=== PATIENT | male | born 1975 | race Caucasian/White ===

== ENCOUNTER 2017-03-29 17:44 | Emergency (ER) | payer OTHER ==
[~2017-03-29] VITALS: Ht 185.4 cm; Wt 141.6 kg
[~2017-03-29 17:44] MED LIST: ALLOPURINOL100 MG PO; BENICAR20 MG PO; INDOMETHACIN25 MG PO; LOSARTAN-HCTZ1 EAC2 PO; NABUMETONE750 MG PO; PERCOCET 5/31 TABLET PO; PRILOSEC40 MG PO; TRAMADOL HCL50 MG PO; ZANTAC150 MG PO; ZOFRAN4 MG PO
[2017-03-29 19:08] LABS: HEMATOCRIT 46.1 % (38.0-50.0); MCH 28.5 PG (29.0-34.0); MCV 86.5 FL (86-99); MEAN PLAT.VOLUME 9.4 uM^3 (9.0-12.4); PLATELET COUNT 233 K/uL (156-360); RBC DIS.WIDTH-CV 14.4 % (11.8-14.6); RBC DIS.WIDTH-SD 45.3 % (39-53); RED BLOOD COUNT 5.33 M/uL (4.00-5.50); WHITE BLOOD COUNT 12.2 K/uL (4.1-10.2)
[2017-03-29 19:17] LABS: CHLORIDE 104 mEq/L (99-109); POTASSIUM 3.4 mEq/L (3.7-5.4); SODIUM 139 mEq/L (136-147)
[2017-03-29 19:20] LABS: GLUCOSE 136 mg/dL (70-99)
[2017-03-29 19:21] LABS: ANION GAP 12 MEQ/L (2-14); TOTAL BILIRUBIN 0.3 mg/dL (0.0-1.0)
[2017-03-29 19:23] LABS: ALKALINE PHOSPHATASE 32 IU/L (3-129); GFR ESTIMATE (CALCULATED) 59 mL/min/
[2017-03-29 19:24] LABS: UREA NITROGEN (BUN) 14 mg/dL (9-23)
[2017-03-29 19:48] VITALS: BP 127/65
== END 2017-03-29 19:48 | disposition home or self-care (01) ==
LOC: EME 17:44
PROVIDERS: Physician Assistant
DX: K60.2 Anal fissure, unspecified (principal); I10 Essential (primary) hypertension; F17.200 Nicotine dependence, unspecified, uncomplicated
CPT/HCPCS: 80053; 85027; 86850; 86900; 86901; 99281; 99283

== ENCOUNTER 2017-04-03 19:30 | Emergency (ER) | payer OTHER ==
[~2017-04-03] VITALS: Ht 185.4 cm; Wt 140.9 kg
[2017-04-03 21:15] LABS: HEMATOCRIT 46.2 % (38.0-50.0); MCH 28.6 PG (29.0-34.0); MCHC 33.3 G/DL (30.0-36.0); MCV 85.7 FL (86-99); MEAN PLAT.VOLUME 9.1 uM^3 (9.0-12.4); PLATELET COUNT 257 K/uL (156-360); RBC DIS.WIDTH-CV 14.5 % (11.8-14.6); RBC DIS.WIDTH-SD 45.1 % (39-53); RED BLOOD COUNT 5.39 M/uL (4.00-5.50); WHITE BLOOD COUNT 12.8 K/uL (4.1-10.2)
[2017-04-03 21:25] LABS: CHLORIDE 104 mEq/L (99-109); POTASSIUM 3.5 mEq/L (3.7-5.4); SODIUM 139 mEq/L (136-147)
[2017-04-03 21:27] LABS: GLUCOSE 131 mg/dL (70-99)
[2017-04-03 21:29] LABS: ANION GAP 11 MEQ/L (2-14)
[2017-04-03 21:31] LABS: ALKALINE PHOSPHATASE 39 IU/L (3-129); GFR ESTIMATE (CALCULATED) > 59 mL/min/
[2017-04-03 21:32] LABS: UREA NITROGEN (BUN) 12 mg/dL (9-23)
[2017-04-03 21:34] LABS: TOTAL BILIRUBIN 0.6 mg/dL (0.0-1.0)
[2017-04-03] MEDS ORDERED: NORCO 5/3251 TABLET PO (21:53)
[2017-04-03] MEDS ORDERED: LEVOFLOXACIN500 MG PO (21:53)
[2017-04-03 21:56] LABS: ADD MIUA? YES; BILIRUBIN NEGATIVE; BLOOD MODERATE; COLOR YELLOW ((YELLOW)); GLUCOSE (STRIP) >=500; KETONES NEGATIVE; LEUKOCYTES SMALL; NITRITE POSITIVE; PROTEIN (STRIP) NEGATIVE; SPECIFIC GRAVITY 1.021 (1.000-1.030); UROBILINOGEN 0.2 MG/DL (0.2-1.0)
[2017-04-03 22:00] LABS: BACTERIA 2+ /HPF; EPITHELIAL CELLS RARE /HPF; MUCUS TRACE /LPF; RED BLOOD CELLS 0-5 /HPF (0-5); UCUL ADDED? YES; WHITE BLOOD CELLS 40-50 /HPF (0-5)
[2017-04-03 22:13] VITALS: BP 130/71
== END 2017-04-03 22:15 | disposition home or self-care (01) ==
LOC: EME 19:30
PROVIDERS: Emergency Medicine
DX: N45.1 Epididymitis (principal); N39.0 Urinary tract infection, site not specified; E11.9 Type 2 diabetes mellitus without complications; I10 Essential (primary) hypertension; F17.200 Nicotine dependence, unspecified, uncomplicated
CPT/HCPCS: 76870; 80053; 81003; 85027; 87077; 87086; 87186; 87491; 87591; 99281; 99284; J0696

== ENCOUNTER 2018-03-02 18:24 | Emergency (ER) | payer OTHER ==
[~2018-03-02] VITALS: Ht 185.4 cm; Wt 143.8 kg
[~2018-03-02 18:24] MED LIST changes: +LEVOFLOXACIN500 MG PO; +NORCO 5/3251 TABLET PO
[2018-03-02 19:36] LABS: APPEARANCE CLEAR ((CLEAR)); BILIRUBIN NEGATIVE; BLOOD NEGATIVE; COLOR YELLOW ((YELLOW)); GLUCOSE (STRIP) >=500; KETONES NEGATIVE; LEUKOCYTES NEGATIVE; NITRITE NEGATIVE; PROTEIN (STRIP) NEGATIVE; SPECIFIC GRAVITY 1.023 (1.000-1.030); UCUL ADDED? NO
[2018-03-02 20:22] LABS: BASOPHIL (%) 0.8 % (0-1); BASOPHIL COUNT 0.1 K/uL (0-0.1); EOSINOPHIL (%) 4.5 % (0-5); EOSINOPHIL COUNT 0.4 K/uL (0-0.3); HEMATOCRIT 45.9 % (38.0-50.0); HEMOGLOBIN 15.9 G/DL (12.5-16.6); IMMATURE GRANULOCYTE (%) 1.1 % (0.0-0.7); LYMPHOCYTE (%) 38.5 % (15-42); LYMPHOCYTE COUNT 3.8 K/uL (1.0-2.8); MCH 29.3 PG (29.0-34.0); MCHC 34.6 G/DL (30.0-36.0); MCV 84.7 FL (86-99); MONOCYTE (%) 6.7 % (3-12); MONOCYTE COUNT 0.7 K/uL (0-0.8); NEUTROPHIL (%) 48.4 % (45-76); NEUTROPHIL COUNT 4.7 K/uL (1.8-6.4); PLATELET COUNT 246 K/uL (156-360); RBC DIS.WIDTH-CV 13.8 % (11.8-14.6); RBC DIS.WIDTH-SD 42.5 % (39-53); RED BLOOD COUNT 5.42 M/uL (4.00-5.50); WHITE BLOOD COUNT 9.8 K/uL (4.1-10.2)
[2018-03-02 20:25] LABS: ALBUMIN 4.3 g/dL (3.2-4.8); CHLORIDE 103 mEq/L (99-109); POTASSIUM 3.6 mEq/L (3.7-5.4); SODIUM 137 mEq/L (136-147)
[2018-03-02 20:28] LABS: GLUCOSE 130 mg/dL (70-99); TOTAL PROTEIN 7.4 g/dL (6.4-8.3)
[2018-03-02 20:30] LABS: TOTAL BILIRUBIN 0.5 mg/dL (0.0-1.0)
[2018-03-02 20:31] LABS: ALKALINE PHOSPHATASE 39 IU/L (3-129); CREATININE 1.4 mg/dL (0.6-1.3); GFR ESTIMATE (CALCULATED) 58 mL/min/ (58.99-99999)
[2018-03-02 20:32] LABS: UREA NITROGEN (BUN) 19 mg/dL (9-23)
[2018-03-02 20:33] LABS: AST (GOT) 33 IU/L (2-34)
[2018-03-02 20:34] LABS: ALT (GPT) 43 IU/L (3-49)
[2018-03-02 20:35] LABS: LIPASE 83 U/L (1.0-51.0)
[2018-03-02 21:01] VITALS: BP 126/71
== END 2018-03-02 21:23 | disposition home or self-care (01) ==
LOC: EME 18:24
PROVIDERS: Physician Assistant
DX: R10.11 Right upper quadrant pain (principal); K76.0 Fatty (change of) liver, not elsewhere classified; K21.9 Gastro-esophageal reflux disease without esophagitis; I10 Essential (primary) hypertension; F17.200 Nicotine dependence, unspecified, uncomplicated
CPT/HCPCS: 76705; 80053; 81003; 83690; 85025; 99281; 99284; J3010